=== PATIENT | male | born 1985 | race Caucasian/White ===

== ENCOUNTER 2016-10-11 12:19 | Emergency (ER) | payer SELFPAY ==
[~2016-10-11] VITALS: Ht 170.2 cm; Wt 114.5 kg
[2016-10-11 12:25] VITALS: BP 150/101
== END 2016-10-11 16:22 | disposition home or self-care (01) ==
LOC: ED 12:19
DX: S05.11XA Contusion of eyeball and orbital tissues, right eye, initial encounter (principal); X58.XXXA Exposure to other specified factors, initial encounter; Y93.89 Activity, other specified; Y99.8 Other external cause status; Y92.89 Other specified places as the place of occurrence of the external cause
CPT/HCPCS: J1885

== ENCOUNTER 2019-09-06 16:40 | Emergency (ER) | payer SELFPAY ==
[~2019-09-06] VITALS: Ht 165.1 cm; Wt 81.6 kg
[2019-09-06 16:45] VITALS: BP 150/70; Ht 165.1 cm; Wt 81.6 kg
== END 2019-09-06 17:30 | disposition home or self-care (01) ==
LOC: ED 16:40
DX: J30.9 Allergic rhinitis, unspecified (principal)